=== PATIENT | female | born 1980 | race Caucasian/White ===

== ENCOUNTER 2020-08-01 16:05 | Emergency (ER) | payer BC ==
[~2020-08-01 16:05] MED LIST: ASPIRIN CHEWABL81 MG PO; BUSPAR 10MG10 MG PO; CARDIZEM CD180 MG PO; CITALOPRAM HBR20 MG PO; COLACE100 MG PO; HYDROCHLOROTHIA25 MG PO; IBU800 MG PO; K-DUR TAB 20 M20 MEQ PO; K-PHOS TAB505 MG PO; KLOR-CON20 MEQ PO; MACROBID 100 M100 MG PO; METHOCARBAMOL500 MG PO; NORCO 10-325 T1 EACH PO; NORCO 5-325 TA1 EACH PO; PHENERGAN 25 MG25 M1 PO; PHOSPHOROUS PO; VITAMIN D31250 MCG PO; Voltaren Gel 1 % TOP; ZOFRAN ODT 4 MG4 MG PO
[2020-08-01 17:42] LABS: RED BLOOD COUNT 4.29 M/UL (4.00-5.10)
[2020-08-01 18:06] LABS: BUN/CREATININE RATIO 27 (0-10)
[2020-09-15] MEDS ORDERED: HYDROCODON-ACE1 EAC4 PO (10:51)
[2020-09-15] MEDS ORDERED: ATENOLOL PO (10:58)
== END 2020-08-01 19:18 | disposition home or self-care (01) ==
LOC: ER1 16:05
PROVIDERS: Family Medicine
DX: E83.39 Other disorders of phosphorus metabolism (principal); R10.10 Upper abdominal pain, unspecified; I10 Essential (primary) hypertension; Z90.49 Acquired absence of other specified parts of digestive tract; Z90.710 Acquired absence of both cervix and uterus; Z88.0 Allergy status to penicillin; Z88.2 Allergy status to sulfonamides; Z88.1 Allergy status to other antibiotic agents; Z88.5 Allergy status to narcotic agent; Z88.8 Allergy status to other drugs, medicaments and biological substances
CPT/HCPCS: 80053; 83690; 83735; 84100; 85025; 99283

== ENCOUNTER → 2020-08-19 | Outpatient (CLI) | payer BC ==
[~2020-08-19] MED LIST changes: +ATENOLOL PO; +HYDROCODON-ACE1 EAC4 PO
== END ==
LOC: EMI 15:32
DX: S72.001A Fracture of unspecified part of neck of right femur, initial encounter for closed fracture (principal); N83.8 Other noninflammatory disorders of ovary, fallopian tube and broad ligament
CPT/HCPCS: 72195

== ENCOUNTER 2020-08-30 10:59 | Emergency (ER) | payer BC ==
[~2020-08-30 10:59] MED LIST changes: -ATENOLOL PO; -HYDROCODON-ACE1 EAC4 PO
[2020-08-30 12:34] LABS: HEMOGLOBIN 12.7 gm/dl (12.3-15.3); RED BLOOD COUNT 4.55 M/UL (4.00-5.10); WHITE BLOOD COUNT 6.3 K/UL (4.5-11.0)
[2020-08-30 13:00] LABS: BUN/CREATININE RATIO 19 (0-10)
[2020-09-15] MEDS ORDERED: HYDROCODON-ACE1 EAC4 PO (10:51)
[2020-09-15] MEDS ORDERED: ATENOLOL PO (10:58)
== END 2020-08-30 17:11 | disposition home or self-care (01) ==
LOC: ER1 10:59
PROVIDERS: Family Medicine
DX: I77.819 Aortic ectasia, unspecified site (principal); Z88.0 Allergy status to penicillin; Z88.5 Allergy status to narcotic agent; Z88.8 Allergy status to other drugs, medicaments and biological substances; Z88.1 Allergy status to other antibiotic agents
CPT/HCPCS: 36415; 71045; 71275; 80053; 82550; 82553; 83874; 84484; 85025; 85610; 85730; 93005; 99284; Q9967

== ENCOUNTER 2020-09-13 10:19 | Emergency (ER) | payer BC ==
[2020-09-13 11:11] LABS: HEMOGLOBIN 12.1 gm/dl (12.3-15.3); RED BLOOD COUNT 4.24 M/UL (4.00-5.10); WHITE BLOOD COUNT 6.9 K/UL (4.5-11.0)
[2020-09-13 11:27] LABS: BUN/CREATININE RATIO 19 (0-10)
[2020-09-15] MEDS ORDERED: HYDROCODON-ACE1 EAC4 PO (10:51)
[2020-09-15] MEDS ORDERED: ATENOLOL PO (10:58)
== END 2020-09-13 12:00 | disposition home or self-care (01) ==
LOC: ER1 10:19
PROVIDERS: Physician Assistant
DX: E27.8 Other specified disorders of adrenal gland (principal); I10 Essential (primary) hypertension; E03.9 Hypothyroidism, unspecified; Z90.49 Acquired absence of other specified parts of digestive tract; Z90.710 Acquired absence of both cervix and uterus; Z88.0 Allergy status to penicillin; Z88.2 Allergy status to sulfonamides; Z88.5 Allergy status to narcotic agent
CPT/HCPCS: 36415; 80053; 81001; 85025; 96374; 99283; J1885

== ENCOUNTER → 2020-09-15 | Day surgery (SDC) | payer BC ==
[~2020-09-15] MED LIST changes: +ATENOLOL PO; +HYDROCODON-ACE1 EAC4 PO
[2020-09-15 11:16] LABS: HEMOGLOBIN 12.8 gm/dl (12.3-15.3); RED BLOOD COUNT 4.51 M/UL (4.00-5.10)
[2020-09-15 11:25] LABS: WHITE BLOOD COUNT 11.1 K/UL (4.5-11.0)
== END | disposition home or self-care (01) ==
LOC: OR 09:22
PROVIDERS: Obstetrics & Gynecology
DX: N83.201 Unspecified ovarian cyst, right side (principal); K66.1 Hemoperitoneum; I10 Essential (primary) hypertension; E05.90 Thyrotoxicosis, unspecified without thyrotoxic crisis or storm; Z88.0 Allergy status to penicillin; Z88.6 Allergy status to analgesic agent; Z88.2 Allergy status to sulfonamides; Z82.49 Family history of ischemic heart disease and other diseases of the circulatory system; Z83.3 Family history of diabetes mellitus; Z87.891 Personal history of nicotine dependence; Z79.899 Other long term (current) drug therapy; Z20.822 Contact with and (suspected) exposure to COVID-19
CPT/HCPCS: 36415; 81001; 85025; 87635; J0360; J1100; J2001; J2250; J2405; J2710; J2795; J3010; J7120

== ENCOUNTER → 2020-09-23 | Outpatient (CLI) | payer BC | LOC: CT 09:33 | DX: I71.2 Thoracic aortic aneurysm, without rupture (principal) | CPT/HCPCS: 71260; Q9967 ==

== ENCOUNTER → 2020-10-21 | Outpatient (CLI) | payer BC | LOC: LAB 08:36 | DX: I10 Essential (primary) hypertension (principal) | CPT/HCPCS: 36415; 80061 ==

== ENCOUNTER 2020-11-09 13:47 | Emergency (ER) | payer BC | END 2020-11-09 18:00 | disposition home or self-care (01) | LOC: ER1 13:47 | DX: G89.18 Other acute postprocedural pain (principal); M25.562 Pain in left knee; I10 Essential (primary) hypertension; Z90.710 Acquired absence of both cervix and uterus; Z88.0 Allergy status to penicillin; Z88.2 Allergy status to sulfonamides | CPT/HCPCS: 93971; 99283 ==

== ENCOUNTER → 2021-04-03 | Outpatient (CLI) | payer BC | LOC: KOH-I 14:11 | DX: M79.672 Pain in left foot (principal); M79.671 Pain in right foot; M19.071 Primary osteoarthritis, right ankle and foot; M19.072 Primary osteoarthritis, left ankle and foot | CPT/HCPCS: 73630 ==

== ENCOUNTER → 2022-01-12 | Outpatient (CLI) | payer BC | LOC: KOH-I 10:05 | DX: R93.89 Abnormal findings on diagnostic imaging of other specified body structures (principal); E83.31 Familial hypophosphatemia | CPT/HCPCS: 73721 ==